=== PATIENT | male | born 1945 | race Caucasian/White ===

== ENCOUNTER → 2019-10-31 | Outpatient (CLI) | payer OTHER | LOC: NUC 12:10 | PROVIDERS: ATTEND Internal Medicine | DX: I50.9 Heart failure, unspecified (principal); R94.31 Abnormal electrocardiogram [ECG] [EKG]; I25.10 Atherosclerotic heart disease of native coronary artery without angina pectoris; Z95.1 Presence of aortocoronary bypass graft ==

== ENCOUNTER 2020-01-07 17:52 | Inpatient (IN) | payer OTHER ==
[~2020-01-07] VITALS: Ht 170.2 cm; Wt 86.2 kg
[2020-01-07 17:55] VITALS: BP 160/59
[2020-01-07 19:09] LABS: HEMATOCRIT 36.8 % (42.0-52.0); HEMOGLOBIN 12.5 gm/dL (14.0-18.0); MCH 28.3 pg (26.0-34.0); MCHC 33.9 g/dL (28.0-37.0); MCV 83.6 fL (80.0-100.0); PLATELET COUNT 221 thou/uL (150-400); RDW 14.6 % (10.5-14.5); WBC 21.1 thou/uL (4.0-11.0)
[2020-01-07] MEDS ORDERED: GLUCOTROL10 MG PO (19:12)
[2020-01-07] MEDS ORDERED: FLOMAX0.4 MG PO (19:13)
[2020-01-07] MEDS ORDERED: FAMOTIDINE 20 M20 MG PO (19:13)
[2020-01-07] MEDS ORDERED: METOPROLOL PO (19:13)
[2020-01-07 19:14] LABS: ANION GAP 12 mmol/L (7-16); BUN 38 mg/dL (7-18); CALCIUM 8.3 mg/dL (8.5-10.1); CHLORIDE 102 mmol/L (98-107); CO2 25 mmol/L (21-32); CREATININE 3.4 mg/dL (0.7-1.3); GLUCOSE 177 mg/dL (74-106); POTASSIUM 4.1 mmol/L (3.5-5.1); SODIUM 139 mmol/L (136-145)
[2020-01-07] MEDS ORDERED: COZAAR 25 MG TA25 M1 PO (19:14)
[2020-01-07] MEDS ORDERED: FUROSEMIDE 20 M20 MG PO (19:14)
[2020-01-07] MEDS ORDERED: ATORVASTATIN CA80 MG PO (19:15)
[2020-01-07] MEDS ORDERED: PROBIOTIC1 EAC7 PO (19:15)
[2020-01-07] MEDS ORDERED: STOOL SOFTENER PO (19:16)
[2020-01-07] MEDS ORDERED: NORVASC 2.5 MG2.5 M1 PO (19:16)
[2020-01-07] MEDS ORDERED: PRO AIR PO (19:17)
[2020-01-07] MEDS ORDERED: LORAZEPAM 1 MG T1 MG PO (19:17)
[2020-01-07] MEDS ORDERED: ASPIR 8181 MG PO (19:17)
[2020-01-07] MEDS ORDERED: CIPRO500 M1 PO (19:18)
[2020-01-07] MEDS ORDERED: AZO PO (19:19)
[2020-01-07 19:29] LABS: ABSOLUTE NEUTROPHILS 18.6 thou/uL (1.4-8.2); ANISOCYTOSIS 1+; POLYCHROMASIA OCCASIONAL
[2020-01-07 19:30] LABS: ALBUMIN 3.2 g/dL (3.4-5.0); DIRECT BILIRUBIN 0.3 mg/dL (<0.1-0.2); SGOT 13 U/L (15-37); SGPT 14 U/L (30-65); TROPONIN-I <0.06 ng/mL (<0.06)
[2020-01-07 19:39] LABS: URINE BILIRUBIN NEGATIVE (Negative); URINE BLOOD TRACE (Negative); URINE CLARITY CLEAR; URINE COLOR YELLOW; URINE GLUCOSE-RANDOM* TRACE (Negative); URINE KETONES NEGATIVE (Negative); URINE LEUKOCYTES-REFLEX TRACE (Negative); URINE NITRITE-REFLEX NEGATIVE (Negative); URINE PROTEIN (DIPSTICK) 2+ (Negative); URINE UROBILINOGEN 0.2 E.U./dl (0.2-1.0)
[2020-01-07 19:50] LABS: CASTS None Seen /LPF (None Seen); CRYSTALS None Seen /LPF (None Seen); SQUAMOUS None Seen /LPF (0-3); URINE RBC 0-2 Rare /HPF (0-2); URINE WBC-REFLEX 6-15 Few /HPF (0-5)
[2020-01-07 19:51] LABS: BACTERIA-REFLEX 1-9 Few /HPF (None Seen)
[2020-01-07 21:09] VITALS: BP 146/58
[2020-01-07 21:18] VITALS: BP 158/56
[2020-01-07 21:30] VITALS: BP 162/55
--- NOTE | 2020-01-08 05:15 | NUR ---
STRAIGHT CATH WITH 16FR COUDE, 475ML CONCENTRATED, DARK YELLOW URINE. C/O EXTREME BURNING AND PAIN DURING PROCEDURE DESPITE 50MCG FENTANYL IV, 5/325MG NORCO, AND LIDODERM NUMBING GEL. ENCOURAGED CONTINUED INTAKE OF ORAL FLUIDS, IV RUNNING AT 100ML/HOUR. STRAIGHT CATH PERFORMED AT 0510.
--- NOTE | 2020-01-08 05:19 | NUR ---
ALERT AND ORIENTED X4, LUNGS CLEAR-ROOM AIR. C/O SIGNIFICANT ABDOMINAL PAIN, POST VOID RESIDUAL OF 300ML. ORDERS TO STRAIGHT CATH X 1 IF PVR >400. PAIN RATED 10/10. OOB AD JOSÉ MIGUEL-STEADY ON FEET. CALLS APPROPRIATELY FOR ANY NEEDED ASSISTANCE.
[2020-01-08 06:21] LABS: HEMATOCRIT 33.8 % (42.0-52.0); HEMOGLOBIN 11.5 gm/dL (14.0-18.0); MCH 28.6 pg (26.0-34.0); MCV 84.2 fL (80.0-100.0); RBC 4.02 mil/uL (4.50-6.00); WBC 20.1 thou/uL (4.0-11.0)
[2020-01-08 06:29] LABS: CALCIUM 7.7 mg/dL (8.5-10.1); CREATININE 2.9 mg/dL (0.7-1.3); POTASSIUM 3.8 mmol/L (3.5-5.1)
[2020-01-08 07:15] VITALS: BP 154/55
--- NOTE | 2020-01-08 09:56 | NUR ---
ORDERS FOR EVAL AND TREAT. SPOKE WITH Pt WHO STATES HE FELT WEAK WHEN HE GOT HERE BUT FEELS MUCH BETTER NOW. HAS BEEN GETTING UP WITHOUT DIFFICULTY. OBSERVED Pt STAND EASILY FROM BED. Pt DECLINING FORMAL P.T. EVAL BUT APPEARS SAFE FOR HOME WHEN MEDICALLY CLEAR
--- NOTE | 2020-01-08 12:15 | NUR ---
Received awake on bed. Due medications given as prescribed, able to swallow meds w/o difficulty. On room air. Vital signs stable. On telemetry; no complains of chest pain, crushing sensation and heaviness. On heart healthy-tolerating well; no nausea, no vomiting and no abdominal pain noted. On blood sugar monitoring, taken and recorded accordingly; with sliding scale insulin ordered- given as prescribed. Up ad rylan. Independent with ADLs. With NS at 100cc/hr, infusing well at R AC. With urinary retention as reported by rn night nurse; pt to be bladder scanned and straight cath if necessary. To continue monitoring patient. Reviewed pt's orders and saw that pt is supposed to be on telemetry; attached strips and monitor on patient. To continue monitoring patient.
--- NOTE | 2020-01-08 12:20 | NUR ---
PT ADMITTED RELATED TO UTI, FAILURE OF OUTPATIENT TREATMENT, VLADIMIR. CM REVIEWED CHART AND SPOKE WITH CARE TEAM. CM CALLED AND SPOKE WITH PT OVER THE PHONE THIS DAY. PT INDICATED THAT HE RESIDES ALONE IN A HOUSE WITH HIS DOG WITH 1 STEP TO ENTER AND A FULL FLIGHT OF STEPS INSIDE. PT INDICATED THAT HE HAD BEEN INDEPENDENT WITH GAIT AND ADLSPTA. PT INDICATED NO HH HX. PT INDICATED PATROL OFFICER IS DR. HARRISON EDMONDS AND UROLOGIST IS DR. MITCH RODRÍGUEZ. PT INDICATED HE PLANS TO RETURN HOME ONCE MEDICALLY STABLE. PT INDICATED HE DOESN'T THINK HE'LL NEED ANYTHING UPON DC. CM TO FOLLOW INDICATED WITH DC PLANNING.
[2020-01-08 17:31] VITALS: BP 154/53
[2020-01-08 17:32] VITALS: BP 147/67
[2020-01-08 20:32] VITALS: BP 155/65
--- NOTE | 2020-01-09 05:00 | NUR ---
ASSUMED CARE OF PT AT 1900HRS. PT AOX3-4 AND LETS NEEDS BE KNOWN. PT IS UP AD JOSÉ MIGUEL. VIGIL IN PLACE AND PATIENT. ABX TREATMENT CONTINUED. PT DENIED PAIN, NAUSEA OR SOA. PT WAS ABLE TO GET COMFFORTABLE AND SLEEP PART OF THE SHIFT. VSS AND NO S/S OF ACUTE DISTRESS. WILL CONTINUE TO MONITOR.
[2020-01-09 06:54] LABS: HEMATOCRIT 31.8 % (42.0-52.0); HEMOGLOBIN 10.5 gm/dL (14.0-18.0); MCV 84.8 fL (80.0-100.0); RBC 3.76 mil/uL (4.50-6.00); RDW 14.8 % (10.5-14.5); WBC 14.3 thou/uL (4.0-11.0)
[2020-01-09 07:20] VITALS: BP 158/64
[2020-01-09 07:31] LABS: CALCIUM 7.8 mg/dL (8.5-10.1); CREATININE 2.6 mg/dL (0.7-1.3); MAGNESIUM 2.1 mg/dL (1.8-2.4)
--- NOTE | 2020-01-09 09:57 | NUR ---
Patient wants to hopefully get their gudino catheter removed and start to try and urinate on their own. Denies any pain or other main concerns. Main focus is getting in contact with urologist to determine a plan on whether to continue with the gudino or discontinue it
--- NOTE | 2020-01-09 10:35 | NUR ---
Received awake on bed. Due medications given as prescribed, able to swallow meds w/o difficulty. On room air. Vital signs stable. On telemetry; no complains and signs of chest pain, crushing sensation and heaviness. On heart healthy diet- tolerating well; no nausea, no vomiting and no abdominal pain noted. On blood sugar monitoring, taken and recorded accordingly, with sliding scale insulin ordered; given as prescribed. With gudino in place- catheter care done; output measured and recorded accordingly. Falls bundle in place. With NS at 100cc/hr, infusing well at R AC. Up ad rylan. Independent with ADLs. Pt seen and examined by Dr Ye, possible discharge tomorrow; pt to still continue on IV antibiotics. To continue monitoring patient.
--- NOTE | 2020-01-09 11:45 | NUR ---
I have reviewed the student documentation.
--- NOTE | 2020-01-09 12:13 | NUR ---
CARE TEAM INDICATED THAT THEY WANT FOR PT TP BE ON IV VANC FOR ANOTHER DAY. THEY INDICATED THAT PT WILL LIKELY DC WIHT A VIGIL CATHETER IN PLACE AND WILL NEED TO FOLLOW UP WITH HIS UROLOGIST ON AN OP BASIS. CM TO FOLLOW INDICATED WITH DC PLANNING.
[2020-01-09 15:11] VITALS: BP 162/54
[2020-01-09 19:20] VITALS: BP 162/59
--- NOTE | 2020-01-10 02:50 | NUR ---
ASSUMED CARE OF PT AT 1900HRS. PT AOX4 AND LETS NEEDS BE KNOWN. PT IS UP AD JOSÉ MIGUEL. MUSA IN PLACE AND IS PATIENT. IVF AND ABX CONTINUED. PT REPORTED SOME PAIN AND WAS TREATED WITH PRN PAIN MEDS. PT WAS ABLE TO GET COMFORTABLE AND SLEEP PART OF THE SHIFT. PT RUNS SR ON TELE. VSS AND NO S/S OF ACUTE DISTRESS. WILL CONTINUE TO [facility].
[2020-01-10 07:01] LABS: HEMOGLOBIN 10.8 gm/dL (14.0-18.0); MCH 28.4 pg (26.0-34.0); MCHC 33.6 g/dL (28.0-37.0); MCV 84.4 fL (80.0-100.0); RBC 3.79 mil/uL (4.50-6.00); RDW 14.4 % (10.5-14.5); WBC 13.1 thou/uL (4.0-11.0)
[2020-01-10 07:15] LABS: CALCIUM 7.9 mg/dL (8.5-10.1); CREATININE 2.2 mg/dL (0.7-1.3); POTASSIUM 4.5 mmol/L (3.5-5.1)
[2020-01-10 07:56] VITALS: BP 188/76
--- NOTE | 2020-01-10 10:43 | NUR ---
Received awake on bed. Due medications given as prescribed, able to swallow meds w/o difficulty. On room air. Vital signs stable, with BP elevation noted- AM BP meds given as prescribed, BP to be rechecked. On telemetry; no complains and signs of chest pain, crushing sensation and heaviness. On heart healthy diet- tolerating well; no nausea, no vomiting and no abdominal pain noted. On blood sugar monitoring, taken and recorded accordingly; with sliding scale insulin ordered- given as prescribed. Up ad rylan, independent with ADLs. Roman removed at 5:50am, pt able to urinate around 8am- 100mls bloody and cloudy- Dr Jerez informed; post void bladder scan done 279mls noted- Dr Jerez informed. With NA at 100cc/hr, infusing well at R AC; on IV antibiotics. To continue monitoring patient. Followed up with lab re: vancomycin level taken at 6:30am- still no results; as per lab staff, they are having trouble with their machine right now and currently calibrating it- will call unit once fixed. Pt seen and examined by Dr Jerez, informed about urine output- discharge orders made and said to monitor urine output and post void residual until after lunch. No complains of pain made during assessment.
[2020-01-10] MEDS ORDERED: AMOXICILLIN 50500 MG PO (10:56)
[2020-01-10 11:01] VITALS: BP 188/76
[2020-01-10 11:08] VITALS: BP 147/94
[2020-01-10 14:30] VITALS: BP 132/80
== END 2020-01-10 16:30 | disposition home or self-care (01) | DRG 871 ==
LOC: ER 17:52 → 4W 21:02 → EROBS 21:02 → 4W 21:28
PROVIDERS: Emergency Medicine; Nurse Practitioner Family; ADMIT Internal Medicine; ATTEND Internal Medicine
DX: A41.9 Sepsis, unspecified organism (principal); N17.0 Acute kidney failure with tubular necrosis; N39.0 Urinary tract infection, site not specified; I13.0 Hypertensive heart and chronic kidney disease with heart failure and stage 1 through stage 4 chronic kidney disease, or unspecified chronic kidney disease; F32.9 Major depressive disorder, single episode, unspecified; I25.10 Atherosclerotic heart disease of native coronary artery without angina pectoris; E78.5 Hyperlipidemia, unspecified; F41.9 Anxiety disorder, unspecified; N40.0 Benign prostatic hyperplasia without lower urinary tract symptoms; E11.9 Type 2 diabetes mellitus without complications; I50.9 Heart failure, unspecified; N18.9 Chronic kidney disease, unspecified; Z60.2 Problems related to living alone; Z95.1 Presence of aortocoronary bypass graft; Z79.84 Long term (current) use of oral hypoglycemic drugs; Z79.899 Other long term (current) drug therapy; I25.2 Old myocardial infarction
CPT/HCPCS: 10045

== ENCOUNTER 2020-01-10 23:34 | Emergency (ER) | payer OTHER ==
[~2020-01-10] VITALS: Ht 172.7 cm; Wt 86.2 kg
[~2020-01-10 23:34] MED LIST: AMOXICILLIN 50500 MG PO; ASPIR 8181 MG PO; ATORVASTATIN CA80 MG PO; AZO PO; CIPRO500 M1 PO; COZAAR 25 MG TA25 M1 PO; FAMOTIDINE 20 M20 MG PO; FLOMAX0.4 MG PO; FUROSEMIDE 20 M20 MG PO; GLUCOTROL10 MG PO; LORAZEPAM 1 MG T1 MG PO; METOPROLOL PO; NORVASC 2.5 MG2.5 M1 PO; PRO AIR PO; PROBIOTIC1 EAC7 PO; STOOL SOFTENER PO
[2020-01-11 03:31] VITALS: BP 177/71
== END 2020-01-11 03:31 | disposition home or self-care (01) ==
LOC: ER 23:34
DX: T83.038A Leakage of other urinary catheter, initial encounter (principal); E11.9 Type 2 diabetes mellitus without complications; E78.5 Hyperlipidemia, unspecified; I25.10 Atherosclerotic heart disease of native coronary artery without angina pectoris; I25.2 Old myocardial infarction; F41.9 Anxiety disorder, unspecified; F32.9 Major depressive disorder, single episode, unspecified; I11.0 Hypertensive heart disease with heart failure; I50.9 Heart failure, unspecified; Z98.61 Coronary angioplasty status; Z79.2 Long term (current) use of antibiotics; Z79.82 Long term (current) use of aspirin; Z79.899 Other long term (current) drug therapy